=== PATIENT | female | born 1955 | race Caucasian/White ===

== ENCOUNTER 2020-02-08 13:10 | Emergency (ER) | payer BC, MEDICARE ==
[~2020-02-08] VITALS: Ht 149.9 cm; Wt 76.8 kg
[~2020-02-08 13:10] MED LIST: ADALAT CC30 MG PO; ASPIRIN EC81 MG PO; AVAPRO300 MG PO; B-121000 MCG PO; BETIMOL5 M1; CALCIUM600 MG PO; D3 DOTS2000 UNIT PO; DORZOLAMIDE-TIM10 ML OU; FOLIC ACID0.4 MG PO; GLIMEPIRIDE1 MG PO; GLUCOPHAGE500 MG PO; LEVEMIR 3M100 UNITS/ SC; LUTEIN20 MG PO; OMEPRAZOLE20 MG PO; ONCE DAILY1 EACH; VICTOZA 2-0.6 MG/0.1 SC; VYTORIN 10-201 EACH PO; invokana PO
[2020-02-08] MEDS ORDERED: FERROUS SULFAT325 MG (13:36)
[2020-02-08] MEDS ORDERED: CRESTOR10 MG (13:36)
[2020-02-08] MEDS ORDERED: IRBESARTAN150 MG PO (13:36)
[2020-02-08] MEDS ORDERED: [UNRECOGNIZED DRUG - OTHER] (13:38)
[2020-02-08] MEDS ORDERED: MAGNESIUM500 MG (13:38)
[2020-02-08] MEDS ORDERED: GINGER ROOT550 MG (13:38)
== END 2020-02-08 14:41 | disposition home or self-care (01) ==
LOC: FSED 13:24
DX: S92.354A Nondisplaced fracture of fifth metatarsal bone, right foot, initial encounter for closed fracture (principal); X50.1XXA Overexertion from prolonged static or awkward postures, initial encounter; K21.9 Gastro-esophageal reflux disease without esophagitis; D64.9 Anemia, unspecified
CPT/HCPCS: 99283

== ENCOUNTER 2022-08-15 21:01 | Emergency (ER) | payer BC, MEDICARE ==
[~2022-08-15] VITALS: Ht 149.9 cm; Wt 79.4 kg
[~2022-08-15 21:01] MED LIST changes: +ACIDOPHILUS1 EAC1 PO; +CRESTOR10 MG; +FERROUS SULFAT325 MG; +GINGER ROOT550 MG; +IRBESARTAN150 MG PO; +MAGNESIUM500 MG; +ZINC PO; +[UNRECOGNIZED DRUG - OTHER]
[2022-08-15] MEDS ORDERED: SODIUM CHLORIDE 0.9% 1000ML 1,000 ML ONE (22:30)
[2022-08-15] MEDS ORDERED: LABETALOL HCL 5 MG/ML 20ML VIAL IV STA (22:31)
[2022-08-15] MEDS ORDERED: ASPIRIN 81 MG CHEW TAB PO ONE (22:45)
[2022-08-15] MEDS ORDERED: SODIUM CHLORIDE 0.9% 1000ML 1,000 ML IV SCH (22:45)
[2022-08-15 22:49] LABS: BASOPHILS % 0.2 % (0.0-1.0); EOSINOPHILS # (AUTO) 0.2 (0.0-0.4); EOSINOPHILS % 1.2 % (0.0-6.0); HEMATOCRIT 31.2 % (34.2-44.1); HEMOGLOBIN 10.2 g/dL (12.0-16.0); LYMPHOCYTES # (AUTO) 1.7 (1.0-3.2); LYMPHOCYTES % 13.4 % (18.0-39.1); MEAN CORPUSCULAR HEMOGLOBIN 28.8 pg (28-32); MEAN CORPUSCULAR HGB CONC 32.7 g/dL (31-35); MEAN CORPUSCULAR VOLUME 88.1 fL (81-99); MONOCYTES # (AUTO) 0.8 (0.2-0.8); MONOCYTES % 6.8 % (4.4-11.3); NEUTROPHILS # (AUTO) 9.6 (2.1-6.9); PLATELET COUNT 286 x10e3/uL (140-360); RED BLOOD COUNT 3.54 x10e6/uL (3.6-5.1); RED CELL DISTRIBUTION WIDTH 13.9 % (11.7-14.4)
[2022-08-15 23:05] LABS: ANION GAP 21.2 mmol/L (8-16); CALCIUM 9.4 mg/dL (8.4-10.2); CREATININE, SERUM 6.63 mg/dL (0.57-1.11)
[2022-08-15 23:06] LABS: POTASSIUM 8.2 mmol/L (3.5-5.1)
[2022-08-15] MEDS ORDERED: DEXTROSE 50% SYRINGE 50 ML IV STA (23:16)
[2022-08-15 23:18] LABS: ALBUMIN 3.1 g/dL (3.5-5.0); BILIRUBIN,DIRECT 0.1 mg/dL (0.0-0.5)
[2022-08-15] MEDS ORDERED: DEXTROSE 50% SYRINGE 50 ML IV ONE (23:30)
[2022-08-15] MEDS ORDERED: INSULIN REGULAR, HUMAN 100 UNIT/1 ML IV ONE (23:30)
[2022-08-15] MEDS ORDERED: INSULIN REGULAR, HUMAN 100 UNIT/1 ML ONE (23:31)
[2022-08-15] MEDS ORDERED: CALCIUM GLUC 1 G/50 ML NACL 50 ML IV ONE (23:31)
[2022-08-16] MEDS ORDERED: DEXTROSE 5% 1,000 ML IV ONE (00:25)
[2022-08-16] MEDS ORDERED: SODIUM BICARBONATE 8.4% SYRING 150 ML ONE (00:25)
[2022-08-16] MEDS ORDERED: SODIUM BICARBONATE 8.4% 150 ML in DEXTROSE 5% 1,000 ML IV ONE (00:30)
[2022-08-16] MEDS ORDERED: NICARDIPINE 20MG/200ML PREMIX 200 ML ONE (00:37)
[2022-08-16] MEDS ORDERED: NICARDIPINE 20MG/200ML PREMIX 200 ML IV SCH (01:15)
[2022-08-16 01:45] VITALS: BP 159/81; PULSE 85; RESP 18; TEMP 97; O2SAT 97
== END 2022-08-16 01:45 | disposition other institution (70) ==
LOC: FSED 21:08
DX: N17.9 Acute kidney failure, unspecified (principal); E87.5 Hyperkalemia; I10 Essential (primary) hypertension; E87.20 Acidosis, unspecified; E87.1 Hypo-osmolality and hyponatremia; E11.65 Type 2 diabetes mellitus with hyperglycemia; Z91.148 Patient's other noncompliance with medication regimen for other reason; E86.0 Dehydration; D64.9 Anemia, unspecified; E78.5 Hyperlipidemia, unspecified; Z79.899 Other long term (current) drug therapy; Z79.82 Long term (current) use of aspirin
CPT/HCPCS: 36415; 71046; 74176; 80048 ×2; 80076 ×2; 81003; 82550; 83605; 84484; 85025 ×2; 93005; 99284; J0612; J3490; J7030; J7070; J7799; U0002